=== PATIENT | male | born 1960 | race Caucasian/White ===

== ENCOUNTER 2020-10-12 12:09 | Observation (INO) ==
[2020-10-12] MEDS ORDERED: methylPREDNISolone 125 MG/2 ML VIAL IVP ONE (12:21)
[2020-10-12] MEDS ORDERED: Isovue-370 500 ML BOTTLE IVP ONE (12:21)
[2020-10-12] MEDS ORDERED: Ipratropium/Albuterol Neb 3 ML IH ONE (12:21)
[2020-10-12 13:22] LABS: Basophils % 0.2 %; Mean Corpuscular Volume 86.9 fL (83.0-100.0); Nucleated Red Blood Cells 0.4 /100 WBC (0); Segmented Neutrophils % 79.8 %
[2020-10-12 13:24] LABS: Eosinophils # 0.1 K/mcL (0.0-0.6); Eosinophils % 1.3 %; Hematocrit 35.9 % (37.5-50.1); Hemoglobin 10.9 g/dL (12.9-16.9); Immature Granulocytes % 0.7 % (0-4); Immature Platelets 3.4 % (1.1-6.1); Lymphocytes # 0.9 K/mcL (0.6-4.6); Lymphocytes % 15.9 %; Mean Corpuscular HGB Conc 30.4 g/dL (31.6-35.5); Mean Corpuscular Hemoglobin 26.4 pg (28.0-33.3); Mean Platelet Volume 9.9 fL (9.4-12.4); Monocytes # 0.1 K/mcL (0.0-1.3); Monocytes % 2.1 %; Neutrophils # 4.3 K/mcL (1.6-8.9); Red Blood Count 4.13 M/mcL (4.19-5.50); White Blood Count 5.4 K/mcL (4.3-11.1)
[2020-10-12 13:28] LABS: INR 1.3; Prothrombin Time 14.5 Seconds (9.4-12.1)
[2020-10-12 13:31] LABS: Activated Partial Thrombo Time 27.8 Seconds (26.0-36.0)
[2020-10-12 13:42] LABS: Alanine Aminotransferase 11 Units/L (7-52); Albumin 3.1 g/dL (3.5-5.7); Albumin/Globulin Ratio 1.3 (1.1-2.2); Alkaline Phosphatase 49 Units/L (34-104); Aspartate Amino Transferase 21 Units/L (13-39); BUN/Creatinine Ratio 20 (6-26); Bilirubin,Direct 0.3 mg/dL (0.0-0.2); Bilirubin,Indirect 0.6 mg/dL (0.0-1.0); Bilirubin,Total 0.9 mg/dL (0.3-1.0); Blood Urea Nitrogen 28 mg/dL (8-23); Carbon Dioxide 20 mEq/L (23-29); Chloride 110 mEq/L (98-107); Globulin 2.4 g/dL (2.4-3.5); Glucose 72 mg/dL (70-105); Osmolality,Calculated 294 (280-300); Potassium 4.4 mEq/L (3.5-5.1); Sodium 140 mEq/L (136-145); Total Protein 5.5 g/dL (6.4-8.9); Troponin I 0.27 ng/mL (< 0.04); eGFR For African Americans > 60 (> 60); eGFR For Non-African Americans 51 (> 60)
[2020-10-12 13:57] LABS: Platelet Count 84 K/mcL (140-400)
[2020-10-12 13:59] LABS: Anisocytosis 2+ (Not Present); Platelet Estimate Slight Decrease (Normal)
[2020-10-12] MEDS ORDERED: *HR* Heparin 5,000 UNIT/ML VIAL IVP ONE (18:10)
[2020-10-12] MEDS ORDERED: *HR* Heparin 5,000 UNIT/ML VIAL IVP PRN (18:10)
[2020-10-12] MEDS ORDERED: Aspirin 325 MG TABLET PO ONE (18:10)
[2020-10-12] MEDS ORDERED: Heparin 25,000UNIT/250ML 1/2NS 25,000 UNIT/250 ML IV.SOLN IVC SCH (18:15)
[2020-10-12] MEDS ORDERED: Nitroglycerin 0.4 MG TAB.SUBL SL SCH (18:30)
[2020-10-12] MEDS ORDERED: Acetaminophen 325 MG TABLET PO PRN (20:20)
[2020-10-12] MEDS ORDERED: Naloxone 0.4 MG/ML INJ IVP PRN (20:20)
[2020-10-12] MEDS ORDERED: Melatonin 3 MG TABLET PO PRN (20:20)
[2020-10-12] MEDS ORDERED: Ondansetron 4 MG/2 ML VIAL IVP PRN (20:20)
[2020-10-12] MEDS ORDERED: Nitroglycerin 0.4 MG TAB.SUBL SL PRN (20:23)
[2020-10-12] MEDS ORDERED: Albuterol 2.5 MG/3 ML NEBULIZER IH PRN (20:24)
[2020-10-12] MEDS ORDERED: Perflutren Lipid Microsphere 1.3 ML in 0.9 % Sodium Chloride 8.7 ML IVP PRN (20:29)
[2020-10-12] MEDS ORDERED: Furosemide 40 MG/4 ML VIAL IVP SCH (20:30)
[2020-10-12] MEDS: Albuterol 2.5 MG/3 ML NEBULIZER IH SCH (23:15)
[2020-10-13 00:45] LABS: Basophils % 0.1 %; Eosinophils % 0.3 %; Segmented Neutrophils % 72.9 %
[2020-10-13 00:47] LABS: Hematocrit 36.5 % (37.5-50.1); Hemoglobin 10.9 g/dL (12.9-16.9); Immature Granulocytes % 0.5 % (0-4); Immature Platelets 3.7 % (1.1-6.1); Lymphocytes # 2.2 K/mcL (0.6-4.6); Lymphocytes % 23.6 %; Mean Corpuscular HGB Conc 29.9 g/dL (31.6-35.5); Mean Corpuscular Hemoglobin 25.8 pg (28.0-33.3); Mean Corpuscular Volume 86.5 fL (83.0-100.0); Mean Platelet Volume 10.8 fL (9.4-12.4); Monocytes # 0.2 K/mcL (0.0-1.3); Monocytes % 2.6 %; Neutrophils # 6.6 K/mcL (1.6-8.9); Red Blood Count 4.22 M/mcL (4.19-5.50); White Blood Count 9.1 K/mcL (4.3-11.1)
[2020-10-13 00:48] LABS: Platelet Count 86 K/mcL (140-400)
[2020-10-13 01:14] LABS: Anisocytosis 1+ (Not Present); Platelet Estimate Slight Decrease (Normal); Reactive Lymphocytes Present (Not Present)
[2020-10-13] MEDS: *HR* Heparin 5,000 UNIT/ML VIAL IVP PRN ×2 (01:36→01:38)
[2020-10-13 01:59] LABS: Estimated Average Glucose 108 mg/dl; Hemoglobin A1C 5.4 %
[2020-10-13] MEDS: Albuterol 2.5 MG/3 ML NEBULIZER IH SCH ×3 (04:24→10:21)
[2020-10-13 04:52] LABS: Calcium 8.4 mg/dL (8.6-10.3); Potassium 5.1 mEq/L (3.5-5.1)
[2020-10-13] MEDS ORDERED: Aspirin 81 MG TAB.CHEW PO SCH (09:00)
[2020-10-13] MEDS ORDERED: predniSONE 20 MG TABLET PO SCH (09:00)
[2020-10-13] MEDS ORDERED: Metoprolol XL (24 HR) Succ 25 MG TAB.ER.24H PO SCH (10:15)
[2020-10-13 11:34] VITALS: BP 132/101; TEMP 97.4; O2SAT 95
[2020-10-13 12:12] VITALS: PULSE 75
[2020-10-14] MEDS ORDERED: Tiotropium Br/Olodaterol Hcl [Stiolto Respimat Inhaler] IH SCH (09:00)
== END 2020-10-13 15:15 | disposition left against medical advice (07) ==
LOC: EMEROOARM 12:09 → 2NNU 12:09 → SUATTDRO 18:28 → 2NNU 20:10
PROVIDERS: ADMIT General Practice; ATTEND Internal Medicine

== ENCOUNTER 2020-11-29 07:17 | Inpatient (IN) ==
[2020-11-29] MEDS ORDERED: 0.9 % Sodium Chloride 1,000 ML ONE ×2 (07:44→09:39)
[2020-11-29] MEDS ORDERED: *HR* Heparin 10,000 UNIT/10 ML VIAL ONE (09:39)
[2020-11-29] MEDS ORDERED: *HR* Midazolam HCl 2 MG/2 ML VIAL ONE (09:39)
[2020-11-29] MEDS ORDERED: Heparin 1,000 UNITS/500 mL 500 ML ONE (09:39)
[2020-11-29] MEDS ORDERED: *HR* FentaNYL (PF) 100 MCG/2 ML VIAL ONE (09:39)
[2020-11-29] MEDS ORDERED: Nitroglycerin 1,000 MCG/5 ML VIAL IV ONE (09:40)
[2020-11-29] MEDS ORDERED: ISOVUE-370 200 ML INFUS..BTL ONE (09:40)
[2020-11-29] MEDS ORDERED: *HR* Heparin 5,000 UNIT/ML VIAL IVP ONE (13:34)
[2020-11-29] MEDS ORDERED: *HR* Heparin 5,000 UNIT/ML VIAL IVP PRN ×2 (13:34)
[2020-11-29] MEDS ORDERED: Heparin 25,000UNIT/250ML 1/2NS 25,000 UNIT/250 ML IV.SOLN IVC SCH (14:00)
[2020-11-29 14:12] LABS: Hematocrit 40.5 % (37.5-50.1); Hemoglobin 12.6 g/dL (12.9-16.9); Mean Corpuscular HGB Conc 31.1 g/dL (31.6-35.5); Mean Corpuscular Volume 83.5 fL (83.0-100.0); Platelet Count 112 K/mcL (140-400); Red Blood Count 4.85 M/mcL (4.19-5.50); Red Cell Distribution Width 18.5 % (11.5-14.5); White Blood Count 6.8 K/mcL (4.3-11.1)
[2020-11-29 14:21] LABS: Heparin anti-factor XA UFH < 0.04 IU/mL (0.30-0.70)
[2020-11-29 14:22] LABS: INR 1.2; Prothrombin Time 13.5 Seconds (9.4-12.1)
[2020-11-29] MEDS ORDERED: Acetaminophen 325 MG TABLET PO PRN (14:44)
[2020-11-29] MEDS ORDERED: Ondansetron ODT 4 MG TAB.RAPDIS SL PRN (14:44)
[2020-11-29] MEDS ORDERED: Naloxone 0.4 MG/ML INJ IVP PRN (14:44)
[2020-11-29] MEDS ORDERED: Aspirin Enteric Coated 81 MG Tablet PO SCH (14:45)
[2020-11-29 19:33] VITALS: BP 114/71; PULSE 57; TEMP 97.7; O2SAT 97
[2020-11-29] MEDS ORDERED: Gabapentin 300 MG CAPSULE PO SCH (21:00)
== END 2020-11-29 20:27 | disposition short-term general hospital (02) | DRG 287 ==
LOC: INVDIALAB 07:17 → 3BNU 10:51
PROVIDERS: ADMIT Nurse Practitioner Family; ATTEND Internal Medicine Cardiovascular Disease